=== PATIENT | male | born 1980 | race Two or more races ===

== ENCOUNTER 2017-10-20 08:12 | Emergency (ER) | payer OTHER ==
[~2017-10-20] VITALS: Ht 170.2 cm; Wt 97.5 kg
[2017-10-20 08:52] LABS: Urine Bacteria NONE SEEN /hpf (None Seen); Urine Blood 2+ /uL (Negative); Urine Mucus FEW (None Seen); Urine Specific Gravity 1.022 (1.001-1.035); Urine WBC 1 /hpf (0 - 3)
[2017-10-20] MEDS ORDERED: KETOROLAC TROMETH 30 MG/ML 1ML VIAL IV ONE (09:00)
[2017-10-20] MEDS ORDERED: SODIUM CHLORIDE 0.9% 1,000 ML IV ONE (09:00)
[2017-10-20 09:07] LABS: Nucleated Red Blood Cells % 0.1 %
[2017-10-20 09:09] LABS: Basophils # (auto) 0.1 uL; Basophils % (auto) 1.1 % (0.0-2.0); Eosinophils # (auto) 0.2 uL; Hematocrit 39.9 % (41.0-53.0); Hemoglobin 13.5 g/dL (13.5-17.5); Lymphocytes # (auto) 1.3 uL; Mean Corpuscular Hemoglobin 26.5 pg (28.0-32.0); Mean Corpuscular Hgb Conc. 33.7 g/dL (32.0-36.0); Mean Corpuscular Volume 78.5 fL (80.0-100.0); Monocytes # (auto) 0.3 uL; Neutrophils # (auto) 4.2 uL; Neutrophils % (auto) 68.9 % (37.0-80.0); Platelet Count (auto) 374 10^3/uL (140-450); Red Blood Cells 5.08 10^6/uL (4.5-5.90); Red Cell Distribution Width 15.4 % (11.8-14.3); White Blood Cell 6.1 10^3/uL (4.4-10.8)
[2017-10-20 09:49] LABS: BUN/Creatinine Ratio 14.7; Calcium 8.9 mg/dL (8.5-10.1); Potassium 3.8 mmol/L (3.5-5.1)
[2017-10-20 09:51] LABS: Bilirubin, Total 0.4 mg/dL (0.2-1.0); Total Protein 7.8 g/dL (6.4-8.2)
[2017-10-20 10:17] VITALS: BP 111/60
== END 2017-10-20 10:32 | disposition home or self-care (01) ==
LOC: ER 08:12
DX: N20.0 Calculus of kidney (principal)
CPT/HCPCS: 36415; 74176; 80053; 81001; 85025; 94761; 96374; 99285; J1885; J7030